=== PATIENT | female | born 1995 | race Caucasian/White ===

== ENCOUNTER 2021-05-04 10:28 | Emergency (ER) | payer OTHER ==
[~2021-05-04] VITALS: Ht 165.1 cm; Wt 104.4 kg
[2021-05-04 10:44] VITALS: BP 132/77
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
[2021-05-04] MEDS ORDERED: CYCL10TA19 PO (12:42)
== END 2021-05-04 12:45 | disposition home or self-care (01) ==
LOC: ER 10:28
DX: S80.02XA Contusion of left knee, initial encounter (principal); M54.2 Cervicalgia; M62.830 Muscle spasm of back; V89.2XXA Person injured in unspecified motor-vehicle accident, traffic, initial encounter; Y93.I9 Activity, other involving external motion; Y92.89 Other specified places as the place of occurrence of the external cause; Y99.8 Other external cause status
CPT/HCPCS: 73564; 99283